=== PATIENT | male | born 1990 | race Caucasian/White ===

== ENCOUNTER 2018-05-29 10:40 | Day surgery (SDC) | payer OTHER ==
[2018-05-29] MEDS ORDERED: Ringers Lactate 1,000 ML IV ONE (11:08)
[2018-05-29] MEDS: OXYMETAZOLINE HCL 0.05% 15ML NAS ONE ×3 (11:27→11:37)
[2018-05-29] MEDS ORDERED: OXYMETAZOLINE HCL 0.05% 15ML NAS ONE (11:58)
[2018-05-29] MEDS ORDERED: NA CHLORIDE 0.9% 500 ML ONE (11:59)
[2018-05-29] MEDS ORDERED: LIDOCAINE 1% W/EPI 1:100,000 MDV 50 ML VIAL ONE (11:59)
[2018-05-29] MEDS ORDERED: FENTANYL CITR 250 MCG/5 ML ONE (12:10)
[2018-05-29] MEDS ORDERED: MIDAZOLAM HCL 2 MG/2 ML INJ ONE (12:10)
[2018-05-29] MEDS ORDERED: PROPOFOL 200 MG/20 ML VIAL IV ONE (12:10)
[2018-05-29] MEDS ORDERED: GLYCOPYRROLATE 0.2 MG/ML SYR ONE ×2 (12:10)
[2018-05-29] MEDS ORDERED: ROCURONIUM 50 MG/5 ML VIAL IV ONE (12:10)
[2018-05-29] MEDS ORDERED: ONDANSETRON 4 MG/2 ML VIAL ONE (12:52)
[2018-05-29] MEDS: Ringers Lactate 1,000 ML IV ONE ×2 (13:40→14:30)
--- NOTE | 2018-05-29 15:23 | P.BOP ---
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 Septoplasty Estimated blood loss: 50ml Specimen: sinus trimmings, Sphenoid content to eval for AFS Findings: thick debris in R sphenoid Anesthesia: General Complications: None Implants: R propel and contour Fluids & blood products: crystalloid 1300ml Transferred to: Recovery Room Condition: Good
--- OUTSIDE RECORDS SUMMARY | 2018-05-30 17:06 | XMS REPORT | Clinical Summary ---
:1990 Author Organization [facility] Address [address] [place] [address] Care Team Providers Name Role Phone Lisa Ayala [employer]SEM[employer]ER-C Primary Care Provider Allergies No Known Allergies Medications Medication Sig Dispensed Refills Start Date End Date Status acetaminophen-codeine 0 03/29/2018 Active (TYLENOL WITH CODEINE #3) 300-30 mg per tablet cyclobenzaprine (FLEXERIL) TK ONE T PO 0 03/21/2018 Active 10 mg tablet TID PRN Active Problems Problem Noted Date Cervico-occipital neuralgia 04/16/2018 Encounters Date Type Specialty Care Team Description 04/16/2018 Office Visit Neurology Blayne Velez-verna Salmon MD neuralgia (Primary Dx) 04/03/2018 Emergency Emergency Medicine Neville Bueno Nonintractable headache, B., DO unspecified chronicity pattern, unspecified headache type (Primary Dx) after 05/28/2017 Social History Tobacco Use Types Packs/Day Years Used Date Never Smoker Smokeless Tobacco: Never Used Alcohol Use Drinks/Week oz/Week Comments No Sex Assigned at Date Recorded Not on file Job Start Date Occupation Industry Not on file Not on file Not on file Travel History Travel Start Travel End No recent travel history available. Last Filed Vital Signs Vital Sign Reading Time Taken Blood Pressure 141/77 04/16/2018 2:23 PM [employer] Pulse 97 04/16/2018 2:23 PM [employer] Temperature 36 C (96.8 F) 04/03/2018 10:42 AM CDT Respiratory Rate 16 04/03/2018 2:44 PM CDT Oxygen Saturation 99% 04/03/2018 2:44 PM CDT Inhaled Oxygen Concentration - - Weight - - Height 193 cm (6' 4") 04/16/2018 2:23 PM [employer] Body Mass Index - - Plan of Treatment Health Maintenance Due Date Last Done Comments INFLUENZA VACCINE 01/08/2018 Procedures Procedure Name Priority Date/Time Associated Comments Diagnosis CT ANGIOGRAM NECK W WO STAT 04/03/2018 1:29 Results for this CONTRAST PM CDT procedure are in the results section. CT ANGIOGRAM HEAD W WO STAT 04/03/2018 1:28 Results for this CONTRAST PM CDT procedure are in the results section. WI INJECT NERV Routine 04/03/2018 1:15 Results for this BLCK,OTHR PERIPH NERV PM CDT procedure are in the results section. ESTIMATED GFR STAT 04/03/2018 11:00 Results for this AM CDT procedure are in the results section. TROPONIN STAT 04/03/2018 11:00 Results for this AM CDT procedure are in the results section. COMPREHENSIVE METABOLIC STAT 04/03/2018 11:00 Results for this PANEL AM CDT procedure are in the results section. PROTHROMBIN TIME WITH STAT 04/03/2018 11:00 Results for this INR AM CDT procedure are in the results section. PARTIAL THROMBOPLASTIN STAT 04/03/2018 11:00 Results for this TIME (PTT) AM CDT procedure are in the results section. HC COMPLETE BLD COUNT STAT 04/03/2018 11:00 Results for this W/AUTO DIFF AM CDT procedure are in the results section. ECG 12-LEAD STAT 04/03/2018 10:54 Results for this AM CDT procedure are in the results section. after 05/28/2017 Results CTA Neck W Wo Contrast (04/03/2018 1:29 PM CDT) Narrative Performed At EXAMINATION:CT ANGIOGRAM NECK W WO CONTRAST [facility] CLINICAL HISTORY:HAdizzinessnumbness COMPARISON:Concurrent head CTA on 04/03/2018. TECHNIQUE: Neck CTA with multiplanar MIP and volumetric rendering after bolus intravenous iodinated contrast administration performed using radiation dose reduction techniques.Technical factors are evaluated and adjusted to ensure appropriate moderation of exposure.Automated dose management technology is applied to adjust radiation exposure while achieving a diagnostic quality image. FINDINGS: There is normal contrast enhancement of the aortic arch and its proximal branch arteries with no significant stenosis or occlusion. There is normal contrast enhancement with no significant stenosis or occlusion along bilateral common, internal, and external carotid arteries. There is normal contrast enhancement with no significant stenosis or occlusion along bilateral vertebral arteries. The left vertebral artery is mildly dominant. Visualized neck soft tissues including thyroid gland are unremarkable. Visualized lungs are unremarkable. IMPRESSION: Unremarkable neck CTA with no significant carotid or vertebral artery stenosis. [id number] Procedure Note Interface, Radiology Results Incoming - 04/03/2018 1:39 PM CDT EXAMINATION: CT ANGIOGRAM NECK W WO CONTRAST CLINICAL HISTORY: BLANC dizziness numbness COMPARISON: Concurrent head CTA on 04/03/2018. TECHNIQUE: Neck CTA with multiplanar MIP and volumetric rendering after bolus intravenous iodinated contrast administration performed using radiation dose reduction techniques. Technical factors are evaluated and adjusted to ensure appropriate moderation of exposure. Automated dose management technology is applied to adjust radiation exposure while achieving a diagnostic quality image. FINDINGS: There is normal contrast enhancement of the aortic arch and its proximal branch arteries with no significant stenosis or occlusion. There is normal contrast enhancement with no significant stenosis or occlusion along bilateral common, internal, and external carotid arteries. There is normal contrast enhancement with no significant stenosis or occlusion along bilateral vertebral arteries. The left vertebral artery is mildly dominant. Visualized neck soft tissues including thyroid gland are unremarkable. Visualized lungs are unremarkable. IMPRESSION: Unremarkable neck CTA with no significant carotid or vertebral artery stenosis. [id number] Performing Organization Address City/State/Zipcode Phone Number [facility] [address] [place] [address] CTA Head W Wo Contrast (04/03/2018 1:28 PM CDT) Narrative Performed At EXAMINATION:CT ANGIOGRAM HEAD W WO CONTRAST [facility] CLINICAL HISTORY:HAnumbnessDizziness COMPARISON:None. TECHNIQUE: Head CTA with multiplanar MIP and volumetric rendering after bolus intravenous iodinated contrast administration performed using radiation dose reduction techniques.Technical factors are evaluated and adjusted to ensure appropriate moderation of exposure.Automated dose management technology is applied to adjust radiation exposure while achieving a diagnostic quality image. FINDINGS: There is normal contrast enhancement with no significant stenosis or occlusion along bilateral intracranial ICAs, ACAs, and MCAs. The anterior communicating artery complex is unremarkable. There is normal contrast enhancement with no significant stenosis or occlusion along bilateral vertebral arteries, basilar artery, cerebellar arteries, and sales trader. The left vertebral artery is dominant. There is a 1-2 mm infundibulum at the origin of the right posterior communicating artery. The left posterior communicating artery is small and not well-visualized. There is no evidence of cerebral aneurysm in the proximal la posta of [place]. There is no evidence of perfusion-weighted defect on CTA source images. IMPRESSION: 1. Unremarkable head CTA with no significant stenosis or occlusion in the proximal la posta of [place]. 2. No evidence of perfusion-weighted defect on CTA source images. [id number] Procedure Note Interface, Radiology Results Incoming - 04/03/2018 1:37 PM CDT EXAMINATION: CT ANGIOGRAM HEAD W WO CONTRAST CLINICAL HISTORY: BALNC numbness Dizziness COMPARISON: None. TECHNIQUE: Head CTA with multiplanar MIP and volumetric rendering after bolus intravenous iodinated contrast administration performed using radiation dose reduction techniques. Technical factors are evaluated and adjusted to ensure appropriate moderation of exposure. Automated dose management technology is applied to adjust radiation exposure while achieving a diagnostic quality image. FINDINGS: There is normal contrast enhancement with no significant stenosis or occlusion along bilateral intracranial ICAs, ACAs, and MCAs. The anterior communicating artery complex is unremarkable. There is normal contrast enhancement with no significant stenosis or occlusion along bilateral vertebral arteries, basilar artery, cerebellar arteries, and sales trader. The left vertebral artery is dominant. There is a 1-2 mm infundibulum at the origin of the right posterior communicating artery. The left posterior communicating artery is small and not well-visualized. There is no evidence of cerebral aneurysm in the proximal la posta of [place]. There is no evidence of perfusion-weighted defect on CTA source images. IMPRESSION: 1. Unremarkable head CTA with no significant stenosis or occlusion in the proximal la posta of [place]. 2. No evidence of perfusion-weighted defect on CTA source images. [id number] Performing Organization Address City/State/Zipcode Phone Number [facility] [address] [place] [address] NERVE BLOCK (04/03/2018 1:15 PM CDT) Narrative Performed At Neville Bueno DO 04/06/20188:44 AM Nerve Block Performed by: HANNAH ESPITIA Authorized by: NEVILLE BUENO Consent: Consent obtained:Verbal Consent given by:Patient Risks discussed:Infection, swelling, unsuccessful block and pain Alternatives discussed:No treatment and delayed treatment Indications: Indications:Pain relief Location: Body area:Head Head nerve:Occipital Laterality:Bilateral Pre-procedure details: Skin preparation:Alcohol Preparation: Patient was prepped and draped in usual sterile fashion Skin anesthesia (see MAR for exact dosages): Skin anesthesia method:None Procedure details (see MAR for exact dosages): Block needle gauge:27 G Anesthetic injected:Lidocaine 2% w/o epi Steroid injected:None Additive injected:None Injection procedure:Anatomic landmarks identified, incremental injection, negative aspiration for blood, anatomic landmarks palpated and introduced needle Paresthesia:Immediately resolved Post-procedure details: Dressing:None Outcome:Pain relieved Patient tolerance of procedure:Tolerated well, no immediate complications Estimated GFR (04/03/2018 11:00 AM CDT) Estimated GFR >=90 mL/min/1.73 m2 [facility] DEPARTMENT OF Comment: PATHOLOGY AND GENOMIC CatergoryUnitsInterpretation MEDICINE G1 >=90 Normal or high G2 60-89Mildly decreased [id number] to moderately decreased [id number] to severely decreased G4 15-29Severely decreased G5 <15Kidney failure The eGFR was calculated using the Chronic Kidney Disease Epidemiology Collaboration (CKD-EPI) equation. Interpretation is based on recommendations of the National Kidney Foundation-Kidney Disease Outcomes Quality Initiative (NKF-KDOQI) published in 2014. Specimen Plasma specimen Performing Organization Address City/State/Zipcode Phone Number [facility] DEPARTMENT OF PATHOLOGY AND [address] [place] [phone] [employer] [facility] Troponin (04/03/2018 11:00 AM CDT) Troponin <0.30 0.00 - 0.30 ng/mL [facility] DEPARTMENT OF PATHOLOGY Comment: AND [employer] MEDICINE 0.30 - 1.49 ng/mlMay indicate increased risk of acute coronary syndrome. >=1.5 ng/mlConsistent with acute myocardial infarction. The diagnostic value of a single normal or non-diagnostic result is questionable.Serial samples at 2-6 hour intervals are required to rule out acute myocardial injury. Specimen Plasma specimen Performing Organization Address City/[facility]/Zipcode Phone Number [facility] DEPARTMENT OF PATHOLOGY AND [address] [place] [phone] [employer] [facility] Partial thromboplastin time, activated (04/03/2018 11:00 AM CDT) PTT 32.5 23.0 - 36.0 sec [facility] DEPARTMENT OF PATHOLOGY Comment: AND [employer] [facility] PTT therapeutic range for unfractionated heparin is 61.0-112.0 seconds which corresponds to Anti-Xa 0.3-0.7 U/ml. Specimen Blood Performing Organization Address [facility]/Zipcode Phone Number [facility] OF PATHOLOGY AND [address] [place] [phone] [employer] [facility] Prothrombin time with INR (04/03/2018 11:00 AM CDT) Prothrombin time 13.3 12.0 - 15.0 sec [facility] DEPARTMENT OF PATHOLOGY AND GENOMIC MEDICINE INR 1.0 [facility] DEPARTMENT OF Comment: PATHOLOGY AND GENOMIC The International Normalized Ratio (INR) is a therapeutic MEDICINE monitoring tool for patients who are stable on oral anticoagulant therapy. An INR of 2.0-3.0 is suggested for deep vein thrombosis/pulmonary embolism. Specimen Blood Performing Organization Address [facility] Phone Number [facility] PATHOLOGY AND [address] [place] [phone] [employer] [facility] CBC with platelet and differential (04/03/2018 11:00 AM CDT) WBC 7.53 4.50 - 11.00 k/uL [facility] DEPARTMENT OF PATHOLOGY AND GENOMIC MEDICINE RBC 5.78 4.40 - 6.00 m/uL [facility] DEPARTMENT OF PATHOLOGY AND GENOMIC MEDICINE HGB 16.2 14.0 - 18.0 g/dL [facility] DEPARTMENT OF PATHOLOGY AND GENOMIC MEDICINE HCT 49.2 41.0 - 51.0 % [facility] DEPARTMENT OF PATHOLOGY AND GENOMIC MEDICINE MCV 85.1 82.0 - 100.0 fL [facility] DEPARTMENT OF PATHOLOGY AND GENOMIC MEDICINE MCH 28.0 27.0 - 34.0 pg [facility] DEPARTMENT OF PATHOLOGY AND GENOMIC MEDICINE MCHC 32.9 31.0 - 37.0 g/dL [facility] DEPARTMENT OF PATHOLOGY AND GENOMIC MEDICINE RDW - SD 40.1 37.0 - 55.0 fL [facility] DEPARTMENT OF PATHOLOGY AND GENOMIC MEDICINE MPV 9.2 8.8 - 13.2 fL [facility] DEPARTMENT OF PATHOLOGY AND GENOMIC MEDICINE Platelet count 239 150 - 400 k/uL [facility] DEPARTMENT OF PATHOLOGY AND GENOMIC MEDICINE Nucleated RBC 0.00 /100 WBC [facility] DEPARTMENT OF PATHOLOGY AND GENOMIC MEDICINE Neutrophils 58.7 39.0 - 69.0 % [facility] DEPARTMENT OF PATHOLOGY AND GENOMIC MEDICINE Lymphocytes 23.8 (L) 25.0 - 45.0 % [facility] DEPARTMENT OF PATHOLOGY AND GENOMIC MEDICINE Monocytes 6.0 0.0 - 10.0 % [facility] DEPARTMENT OF PATHOLOGY AND GENOMIC MEDICINE Eosinophils 10.4 (H) 0.0 - 5.0 % [facility] DEPARTMENT OF PATHOLOGY AND GENOMIC MEDICINE Basophils 0.7 0.0 - 1.0 % [facility] DEPARTMENT OF PATHOLOGY AND GENOMIC MEDICINE Immature granulocytes 0.4Comment: 0.0 - 1.0 % [facility] DEPARTMENT OF "Immature PATHOLOGY AND GENOMIC granulocytes" MEDICINE (promyelocytes, myelocytes, metamyelocytes) Specimen Blood Performing Organization Address City/State/Zipcode Phone Number [facility] DEPARTMENT OF PATHOLOGY AND [address] [place] [address] [facility] MEDICINE Comprehensive metabolic panel (04/03/2018 11:00 AM CDT) Sodium 141 135 - 148 mEq/L [facility] DEPARTMENT OF PATHOLOGY AND GENOMIC MEDICINE Potassium 4.3 3.5 - 5.0 mEq/L [facility] DEPARTMENT OF PATHOLOGY AND GENOMIC MEDICINE Chloride 101 98 - 112 mEq/L [facility] DEPARTMENT OF PATHOLOGY AND GENOMIC MEDICINE CO2 29 24 - 31 mEq/L [facility] DEPARTMENT OF PATHOLOGY AND GENOMIC MEDICINE Anion gap 11@ANIO 7 - 15 mEq/L [facility] DEPARTMENT OF PATHOLOGY AND GENOMIC MEDICINE BUN 12 6 - 20 mg/dL [facility] DEPARTMENT OF PATHOLOGY AND GENOMIC MEDICINE Creatinine 1.05 0.70 - 1.20 mg/dL [facility] DEPARTMENT OF PATHOLOGY AND GENOMIC MEDICINE Glucose 109 (H) 65 - 99 mg/dL [facility] DEPARTMENT OF PATHOLOGY AND GENOMIC MEDICINE Calcium 9.9 8.3 - 10.2 mg/dL [facility] DEPARTMENT OF PATHOLOGY AND GENOMIC MEDICINE Protein 7.6 6.3 - 8.3 g/dL [facility] DEPARTMENT OF Comment: PATHOLOGY AND GENOMIC [place] 4.6-7.0 g/dL MEDICINE 1 week 4.4-7.6 g/dL 7 months-1year5.1-7.3 g/dL 1-2 years5.6-7.5 g/dL >3 years6.0-8.0 g/dL 18-150 6.3-8.3 g/dL Albumin 4.1 3.5 - 5.0 g/dL [facility] DEPARTMENT OF PATHOLOGY AND GENOMIC MEDICINE A/G ratio 1.2 0.7 - 3.8 [facility] DEPARTMENT OF PATHOLOGY AND GENOMIC MEDICINE Alkaline phosphatase 79 40 - 129 U/L [facility] DEPARTMENT OF PATHOLOGY AND GENOMIC MEDICINE AST 19 10 - 50 U/L [facility] DEPARTMENT OF PATHOLOGY AND GENOMIC MEDICINE ALT 24 5 - 50 U/L [facility] DEPARTMENT OF PATHOLOGY AND GENOMIC MEDICINE Total bilirubin 0.3 0.0 - 1.2 mg/dL [facility] DEPARTMENT OF PATHOLOGY AND GENOMIC MEDICINE Specimen Plasma specimen Performing Organization Address City/State/Zipcode Phone Number [facility] DEPARTMENT OF PATHOLOGY AND [address] [place] [address] GENOMIC MEDICINE ECG 12 lead (04/03/2018 10:54 AM CDT) Ventricular rate 66 [facility] MUSE Atrial rate 66 [facility] MUSE [place] interval 154 [facility] MUSE QRSD interval 90 [facility] M[facility] QT interval 372 [facility] QTC interval 389 [facility] MUSE P axis 1 79 [facility] MUSE QRS axis 1 84 [facility] M[facility] T wave axis 77 [facility]USE EKG impression Normal sinus rhythm-Normal ECG-No previous [facility] MUSE ECGs available- Performing Organization Address City/[facility] Phone Number [facility] [address] [place] [address] after 05/28/2017 Insurance Payer Benefit Plan / Group Subscriber ID Type Phone Address [facility] xxxxxxxxx Advance Directives Patient has advance care planning documents on file. For more information, please contact:Ottoniel Gambino[address] [place] [address]
--- NOTE | 2018-06-04 13:06 | OP ---
Date of Procedure: 05/29/2018 Surgeon: Cora Harley MD Preoperative Diagnoses: 1.Chronic sinusitis with likely fungal ball of the right sphenoid. 2.Septal deviation. Postoperative Diagnoses: 1.Chronic sinusitis with likely fungal ball of the right sphenoid. 2.Septal deviation. Procedure: Septoplasty, nasal endoscopy with left sphenoidotomy, nasal endoscopy with right maxillar y antrostomy, total ethmoidectomy, sphenoidotomy with removal of sinus contents, frontal sinusotomy a nd use of CT extradural navigation intraoperatively via the [employer] Interactive navigation system. Indication For Procedure: Mr. Beaulieu presented with severe headache and was treated for chronic r hinosinusitis. Postoperative imaging revealed persistent opacification, much worse on the right side with suspicion for large fungal ball versus allergic fungal sinusitis. The risks, benefits, and alt ernatives to the procedure were discussed with the patient, who agreed to proceed. Description Of Procedure: The patient was brought to the operating room. He was placed under genera l anesthesia via oral endotracheal tube. The head of bed was turned 90 degrees and the nasal hairs w ere trimmed. The nasal cavity was packed with Afrin-soaked pledgets. While these were taking effect , the [employer] Interactive system was applied as follows. The navigation headpiece was secured to the patient's forehead. The previously obtained CT images were loaded into the system and registration was perform ed by surface matching using the laser pointer. Confirmation of accuracy was confirmed by point-to-p oint matching including the tip of the nose, the base of the columella, the glabella, and the bilater al medial and lateral canthi, and registration and accuracy was felt to be very good. The straight n avigation suction and curved navigation suction were calibrated in accordance with perinatal social worker's ins tructions. The left side was addressed first. On the preoperative CT imaging the left maxillary eth moid and frontal sinuses were unremarkable. There was minimal opacification of the posterior ethmoid cells with complete opacification of the left sphenoid sinus. Therefore, left sphenoidotomy was per formed. The 0-degree endoscope was used to navigate to this face of the sphenoid and the sphenoid os was carefully cannulated and enlarged using the microdebrider and sphenoid punch using the navigatio n to aid in appropriate, we locating the sphenoid os. This area was thoroughly irrigated with steril e saline and suctioned. Afrin-soaked pledgets were applied to the sphenoethmoid recess and attention was turned to the septoplasty. A very large right septal spur was obstructing access to the right p osterior sinus cavities and a planned septoplasty was initiated. A left hemitransfixion incision was made. The mucosal flaps were elevated using a Reinaldo elevator. The cartilaginous septum was essent ially unremarkable. There was a very large right bony septal spur. Mucosa was carefully elevated ov er this area. The osteocartilaginous junction of the septum was carefully using a Reinaldo e levator. Heavy scissors were then used to divide the bony septum just superior to the spur. The spu r was down fractured and removed using Tadeo. Once this large fragment was removed, the septum w as essentially midline, there was some mucosal laceration over the site of the spur and these were ca refully replaced in their anatomic position. Once the septoplasty was complete, the incision was lef t open until completion of the remaining sinus procedures was performed. The 0-degree endoscope was used to perform a nasal endoscopy and the middle turbinate was medialized using a [place]. The uncinat e process was carefully palpated using a maxillary seeker and then removed using a backbiter and 90-d egree Blakes[place]. The mucosa around the opening was noted to be significantly edematous and bloody, a nd formal opening of the sphenoid was deferred until later in the case. The ethmoid bulla was then v isualized and a curette was used to dissect through the ethmoid cells, taking care with the straight navigation suction to avoid the lamina papyracea. The ethmoid cells were then better visualized mounika g the skull base. Using a 30-degree scope and the curved navigation suction, an additional dissectio n of the ethmoid air cells along the skull base was undertaken in a posterior to anterior position. The frontal sinus was cannulated and cells around the frontal recess were removed using [place]. The frontal recess was noted to be narrowed anatomically with limitations by the posterior table and a p rominent frontal beak. Once this area was cannulated, attention was turned to the sphenoid sinus. A transethmoidal approach to the sinus was undertaken. The os was opened after identification using t he microdebrider and the sphenoid punch. The right ethmoid sinus was completely filled with very thi ck putty-like material, which required extensive work to remove the debris within the sphenoid sinus was removed with a variety of techniques including loosening and scooping with the straight curette i n order to break up the massive tissue, forceful irrigation using sterile saline and suctioning. The debris was very thick and very sticky, and in some portions had a crumbly texture consistent with fu ngal ball versus allergic fungal sinusitis. An extensive amount of time was spent in order to comple tely remove this material from the sinus. A 30-degree scope was used to better visualize the floor o f the sphenoid sinus to ensure complete removal of the material. After completion of the sphenoidoto my, the 30 degree endoscope was used to better visualize. The lateral nasal wall and the maxillary a ntrostomy were refined using a 90-degree [place] and microdebrider to better open the os. The nasa l cavities were then thoroughly irrigated using an A[place] bulb in order to remove any mucus or residu al fungal debris from the nasal cavities. The attention was then turned to the septum and the left h emitransfixion incision was closed using a running chromic suture. A plain gut suture was then used to approximate the septal flaps to the cartilaginous septum using a mattressing suture. Finally, dec ision was made for placement of steroid eluting stents in the right cavity in order to prevent latera lization of the middle turbinate as well as to provide local drug delivery of steroids during the ini tial healing process. A Propel contour stent was placed within the right maxillary antrostomy due to swelling along the edges of the antrostomy with mild polypoid appearing mucosa. A standard Propel s tent was then placed within the ethmoid cavity. The nasopharynx was thoroughly suctioned and the pat ient was returned to care of anesthesia for awakening extubation in the operating room which proceeds without complication. The patient will be discharged home with standard post sinus surgery instruct ions and follow up with Dr. Harley in 1 to 2 weeks for evaluation of healing. GINO/EMANI Voice ID: [id number] Report ID: [id number]
== END 2018-05-29 17:10 | disposition home or self-care (01) ==
LOC: OR 10:40
PROVIDERS: ATTEND Otolaryngology
PROC: 09BV4ZZ Excision of Left Ethmoid Sinus, Percutaneous Endoscopic Approach (ICD-10-PCS; 2018-05-29)
PROC: 09BU4ZZ Excision of Right Ethmoid Sinus, Percutaneous Endoscopic Approach (ICD-10-PCS; 2018-05-29)
PROC: 09BX4ZZ Excision of Left Sphenoid Sinus, Percutaneous Endoscopic Approach (ICD-10-PCS; 2018-05-29)
PROC: 09BW4ZZ Excision of Right Sphenoid Sinus, Percutaneous Endoscopic Approach (ICD-10-PCS; 2018-05-29)
PROC: 099R4ZZ Drainage of Left Maxillary Sinus, Percutaneous Endoscopic Approach (ICD-10-PCS; 2018-05-29)
PROC: 099Q4ZZ Drainage of Right Maxillary Sinus, Percutaneous Endoscopic Approach (ICD-10-PCS; 2018-05-29)
PROC: 8E09XBZ Computer Assisted Procedure of Head and Neck Region (ICD-10-PCS; 2018-05-29)
PROC: 09BM0ZZ Excision of Nasal Septum, Open Approach (ICD-10-PCS; principal; 2018-05-29 12:00)
DX: J34.2 Deviated nasal septum (principal); J32.3 Chronic sphenoidal sinusitis; B48.8 Other specified mycoses; J32.4 Chronic pansinusitis; J34.89 Other specified disorders of nose and nasal sinuses; F17.210 Nicotine dependence, cigarettes, uncomplicated; F17.220 Nicotine dependence, chewing tobacco, uncomplicated
CPT/HCPCS: 0406T; 30520; 31253; 31256; 31259; 61782; 88304; 88311; 88312; J2250; J2405; J2704; J3010